=== PATIENT | male | born 1975 | race African-American/Black ===

== ENCOUNTER 2017-01-23 16:05 | Emergency (ER) | payer BC ==
[~2017-01-23] VITALS: Ht 182.9 cm; Wt 76.2 kg
[2017-01-23 16:59] LABS: HEMATOCRIT 41.2 % (38.0-50.0); MCH 30.1 PG (29.0-34.0); MCHC 36.4 G/DL (30.0-36.0); MCV 82.7 FL (86-99); MEAN PLAT.VOLUME 10.1 uM^3 (9.0-12.4); PLATELET COUNT 241 K/uL (156-360); RBC DIS.WIDTH-CV 12.8 % (11.8-14.6); RBC DIS.WIDTH-SD 38.5 % (39-53); RED BLOOD COUNT 4.98 M/uL (4.00-5.50); WHITE BLOOD COUNT 13.3 K/uL (4.1-10.2)
[2017-01-23 17:08] LABS: CHLORIDE 106 mEq/L (99-109); POTASSIUM 4.6 mEq/L (3.7-5.4); SODIUM 139 mEq/L (136-147)
[2017-01-23 17:09] LABS: GLUCOSE 112 mg/dL (70-99)
[2017-01-23 17:11] LABS: ANION GAP 8 MEQ/L (2-14)
[2017-01-23 17:14] LABS: UREA NITROGEN (BUN) 29 mg/dL (9-23)
[2017-01-23 17:15] LABS: GFR ESTIMATE (CALCULATED) 47 mL/min/
[2017-01-23 17:18] LABS: TROP-I INTERPRETATION NEGATIVE; TROPONIN-I < 0.01 ng/mL (0.0-0.30)
[2017-01-23 19:37] LABS: TROP-I INTERPRETATION NEGATIVE; TROPONIN-I < 0.01 ng/mL (0.0-0.30)
[2017-01-23] MEDS ORDERED: INDOCIN50 MG PO (20:05)
[2017-01-23 20:23] VITALS: BP 125/86
== END 2017-01-23 20:25 | disposition home or self-care (01) ==
LOC: EME 16:05
PROVIDERS: Physician Assistant
DX: R07.89 Other chest pain (principal); J45.909 Unspecified asthma, uncomplicated; I12.9 Hypertensive chronic kidney disease with stage 1 through stage 4 chronic kidney disease, or unspecified chronic kidney disease; N18.3 Chronic kidney disease, stage 3 (moderate); F17.200 Nicotine dependence, unspecified, uncomplicated
CPT/HCPCS: 71020; 80048; 84484; 85027; 93005; 99281; 99284

== ENCOUNTER 2017-03-20 13:55 | Emergency (ER) | payer BC ==
[~2017-03-20] VITALS: Ht 182.9 cm; Wt 74.5 kg
[~2017-03-20 13:55] MED LIST: INDOCIN50 MG PO
[2017-03-20] MEDS ORDERED: CELEXA20 MG PO (14:52)
[2017-03-20 15:07] VITALS: BP 158/103
== END 2017-03-20 15:07 | disposition home or self-care (01) ==
LOC: EME 13:55
DX: F32.9 Major depressive disorder, single episode, unspecified (principal); I10 Essential (primary) hypertension; J45.909 Unspecified asthma, uncomplicated; E11.9 Type 2 diabetes mellitus without complications; F17.200 Nicotine dependence, unspecified, uncomplicated
CPT/HCPCS: 99281; 99283